=== PATIENT | male | born 1975 | race African-American/Black ===

== ENCOUNTER 2019-11-11 19:11 | Emergency (ER) | payer MEDICAID ==
[~2019-11-11] VITALS: Ht 177.8 cm; Wt 107.0 kg
[2019-11-11] MEDS ORDERED: ASPIRIN 81MG TABLET PO ONE (19:30)
[2019-11-11] MEDS ORDERED: IPRATROPIUM BROMIDE (0.02%) 0.5MG/2.5ML NEB HHN STA (19:41)
[2019-11-11] MEDS ORDERED: ALBUTEROL (0.083%) 2.5MG/3ML NEB HHN STA (19:41)
[2019-11-11 19:45] LABS: BASOPHILS % 0.6 % (0.0-2.0); EOSINOPHILS % 0.6 % (0.0-5.0); HEMATOCRIT. 33.2 % (42.0-52.0); LYMPHOCYTES % 8.9 % (20.0-50.0); MEAN CORPUSCULAR HEMOGLOBIN 28.6 pg (28.0-32.0); MEAN CORPUSCULAR VOLUME 86.6 fL (80.0-94.0); MEAN PLATELET VOLUME 8.7 fl (7.4-10.4); MONOCYTES % 11.1 % (2.0-8.0); NEUTROPHILS % 78.8 % (40.0-76.0); PLATELET 307 x1000/uL (130-400); RED BLOOD CELL COUNT 3.83 mill/uL (4.7-6.1); RED CELL DISTRIBUTION WIDTH 14.9 % (11.6-14.6)
[2019-11-11] MEDS ORDERED: HYDROCODONE/ACETAMINOPHEN 5/325MG TABLET PO ONE (19:45)
[2019-11-11 19:49] LABS: CHLORIDE 99 mEq/L (98-107)
[2019-11-11] MEDS ORDERED: SODIUM CHLORIDE 0.9% 1,000 ML IV ONE (21:15)
[2019-11-11] MEDS ORDERED: ALBUTEROL (0.5%) 2.5MG/0.5ML NEB HHN ONE (21:15)
[2019-11-11] MEDS ORDERED: KETOROLAC 15MG/ML VIAL IV ONE (21:45)
[2019-11-12 00:25] VITALS: BP 116/83
== END 2019-11-12 00:25 | disposition home or self-care (01) ==
LOC: ER 19:11
DX: R07.89 Other chest pain (principal); R05 Cough; D72.829 Elevated white blood cell count, unspecified; E11.9 Type 2 diabetes mellitus without complications; I10 Essential (primary) hypertension; J40 Bronchitis, not specified as acute or chronic; G62.9 Polyneuropathy, unspecified
CPT/HCPCS: 36415; 71045; 80053; 83880; 84484; 85025; 93005; 94640; 96361; 96374; 99285; J1885; J7030; Z7610

== ENCOUNTER 2019-12-10 19:36 | Emergency (ER) | payer MEDICAID, OTHER ==
[~2019-12-10] VITALS: Ht 177.8 cm; Wt 106.3 kg
[2019-12-11 00:13] LABS: BASOPHILS % 0.7 % (0.0-2.0); EOSINOPHILS % 4.1 % (0.0-5.0); HEMATOCRIT. 32.8 % (42.0-52.0); LYMPHOCYTES % 19.9 % (20.0-50.0); MEAN CORPUSCULAR HEMOGLOBIN 29.4 pg (28.0-32.0); MEAN CORPUSCULAR VOLUME 87.9 fL (80.0-94.0); MEAN PLATELET VOLUME 7.8 fl (7.4-10.4); MONOCYTES % 10.1 % (2.0-8.0); NEUTROPHILS % 65.2 % (40.0-76.0); PLATELET 369 x1000/uL (130-400); RED BLOOD CELL COUNT 3.73 mill/uL (4.7-6.1); RED CELL DISTRIBUTION WIDTH 15.3 % (11.6-14.6)
[2019-12-11 00:19] LABS: CHLORIDE 101 mEq/L (98-107)
[2019-12-11] MEDS ORDERED: PIPERACILLIN/TAZOBACTAM 3.375GM/50ML PREMIX IV ONE (01:00)
[2019-12-11] MEDS ORDERED: VANCOMYCIN 1 G PREMIX 200 ML IV NR (01:00)
[2019-12-11] MEDS ORDERED: PIPERACILLIN/TAZ 3.375G PREMIX 50 ML IV NR ×2 (01:15→02:00)
[2019-12-11 01:35] LABS: PROTHROMBIN TIME 10.2 sec (9.6-11.0)
[2019-12-11 05:58] VITALS: BP 148/87
== END 2019-12-11 06:08 | disposition short-term general hospital (02) ==
LOC: ER 19:36 → CANBEDREQ 12-11 06:31
DX: L89.893 Pressure ulcer of other site, stage 3 (principal); E11.621 Type 2 diabetes mellitus with foot ulcer; E11.65 Type 2 diabetes mellitus with hyperglycemia; M86.8X7 Other osteomyelitis, ankle and foot; L03.115 Cellulitis of right lower limb; E11.22 Type 2 diabetes mellitus with diabetic chronic kidney disease; I12.9 Hypertensive chronic kidney disease with stage 1 through stage 4 chronic kidney disease, or unspecified chronic kidney disease; N18.2 Chronic kidney disease, stage 2 (mild)
CPT/HCPCS: 36415; 71045; 73630; 80053; 83605; 84145; 84484; 85025; 85610; 87040; 93005; 96365; 96366; 96368; 99285; J2543; J3370

== ENCOUNTER 2020-01-28 17:23 | Emergency (ER) | payer OTHER ==
[~2020-01-28] VITALS: Ht 177.8 cm; Wt 109.0 kg
[2020-01-28] MEDS ORDERED: ONDANSETRON HCL 4MG/2ML INJ IM ONE (19:00)
[2020-01-28 19:07] LABS: HEMATOCRIT. 31.2 % (42.0-52.0); HEMOGLOBIN. 9.9 g/dL (14.0-18.0); MEAN CORPUSCULAR HEMOGLOBIN 27.6 pg (28.0-32.0); MEAN CORPUSCULAR VOLUME 86.6 fL (80.0-94.0); MEAN PLATELET VOLUME 10.1 fl (7.4-10.4); PLATELET 396 x1000/uL (130-400); RED CELL DISTRIBUTION WIDTH 15.6 % (11.6-14.6)
[2020-01-28 19:13] LABS: CHLORIDE 88 mEq/L (98-107)
[2020-01-28 19:16] LABS: CLARITY URINE CLEAR (CLEAR); COLOR URINE YELLOW (YELLOW); KETONES URINE TRACE (NEGATIVE); LEUKOCYTE ESTERASE URINE NEGATIVE (NEGATIVE); NITRITE URINE NEGATIVE (NEGATIVE); OCCULT BLOOD URINE 1+ (NEGATIVE); PROTEIN URINE 1+ (NEGATIVE); SPECIFIC GRAVITY URINE 1.031 (1.005-1.030)
[2020-01-28] MEDS ORDERED: SODIUM CHLORIDE 0.9% 1,000 ML IV ONE ×2 (19:30)
[2020-01-28] MEDS ORDERED: CEFTRIAXONE 1 G PREMIX 50 ML IV ONE (19:30)
[2020-01-28 19:42] LABS: PLATELET ESTIMATE NORMAL
[2020-01-28] MEDS ORDERED: INSULIN REGULAR (HUMULIN R) 300UNITS/3ML VIAL IV ONE (21:15)
[2020-01-29 03:24] VITALS: BP 121/63
== END 2020-01-29 03:22 | disposition short-term general hospital (02) ==
LOC: ER 17:23 → CANBEDREQ 01-29 07:14
DX: R60.0 Localized edema (principal); E11.65 Type 2 diabetes mellitus with hyperglycemia; I12.9 Hypertensive chronic kidney disease with stage 1 through stage 4 chronic kidney disease, or unspecified chronic kidney disease; N18.9 Chronic kidney disease, unspecified; D72.829 Elevated white blood cell count, unspecified; R79.89 Other specified abnormal findings of blood chemistry
CPT/HCPCS: 36415; 71045; 80053; 81003; 82962; 83880; 85025; 85610; 93005; 93971; 96372; 96374; 96375; 99285; J0696; J1815; J2405; J7030

== ENCOUNTER 2020-02-22 17:14 | Emergency (ER) | payer OTHER ==
[~2020-02-22] VITALS: Ht 177.8 cm; Wt 105.0 kg
[2020-02-22 20:25] VITALS: BP 167/74
== END 2020-02-22 20:29 | disposition home or self-care (01) ==
LOC: ER 17:14
DX: M79.671 Pain in right foot (principal); E11.9 Type 2 diabetes mellitus without complications; I10 Essential (primary) hypertension
CPT/HCPCS: 93005; 99283

== ENCOUNTER 2021-05-18 18:01 | Inpatient (IN) | payer OTHER ==
[~2021-05-18] VITALS: Ht 177.8 cm; Wt 106.1 kg
[2021-05-18 19:05] LABS: CHLORIDE 100 mEq/L (98-107)
[2021-05-18 19:12] LABS: BASOPHILS % 0.5 % (0.0-2.0); EOSINOPHILS % 0.7 % (0.0-5.0); HEMATOCRIT. 29.8 % (42.0-52.0); HEMOGLOBIN. 9.4 g/dL (14.0-18.0); MEAN CORPUSCULAR HEMOGLOBIN 26.2 pg (28.0-32.0); MEAN CORPUSCULAR VOLUME 82.9 fL (80.0-94.0); NEUTROPHILS % 78.8 % (40.0-76.0); PLATELET 339 x1000/uL (130-400); RED CELL DISTRIBUTION WIDTH 15.6 % (11.6-14.6)
[2021-05-18] MEDS ORDERED: ONDANSETRON HCL 4MG/2ML INJ IV STA (20:27)
[2021-05-18] MEDS ORDERED: MORPHINE SULFATE 4 MG/ML CPJ (NOT FOR IM USE) IV STA (20:27)
[2021-05-18] MEDS ORDERED: NITROGLYCERIN OINT 1GM/INCH UDPKT TD ONE (20:30)
[2021-05-18] MEDS ORDERED: PIPERACILLIN/TAZ 3.375G PREMIX 50 ML IV ONE (21:00)
[2021-05-18] MEDS ORDERED: VANCOMYCIN 1G PREMIX 200 ML IV ONE (21:00)
[2021-05-18] MEDS ORDERED: ASPIRIN 81MG TABLET PO ONE (21:45)
[2021-05-19] MEDS ORDERED: VANCOMYCIN 1G PREMIX 200 ML IV SCH (06:00)
[2021-05-19] MEDS ORDERED: HYDROCODONE/ACETAMINOPHEN 5/325MG TABLET PO PRN (11:00)
[2021-05-19] MEDS ORDERED: ACETAMINOPHEN 325MG TABLET PO PRN (11:00)
[2021-05-19] MEDS ORDERED: ONDANSETRON HCL 4MG/2ML INJ IV PRN (11:00)
[2021-05-19] MEDS ORDERED: DEXTROSE 50% WATER 50ML SYRINGE IV PRN (11:15)
[2021-05-19 12:00] VITALS: BP 126/73
[2021-05-19] MEDS: BLOOD SUGAR DIAGNOSTIC STRIP TEST SCH ×3 (12:16→21:00)
[2021-05-19] MEDS: INSULIN LISPRO 100 UNITS/ML SUBCUT SCH ×4 (12:40→22:21)
[2021-05-19] MEDS: LEVOFLOXACIN 500MG PREMIX 100 ML IV SCH (13:43)
[2021-05-19 16:00] VITALS: BP 156/87
[2021-05-19 20:00] VITALS: BP 120/70
[2021-05-19 20:52] VITALS: BP 126/73
[2021-05-20] VITALS: BP 121/72
[2021-05-20 04:00] VITALS: BP 129/77
[2021-05-20] MEDS: BLOOD SUGAR DIAGNOSTIC STRIP TEST SCH ×4 (06:45→20:22)
[2021-05-20] MEDS: INSULIN LISPRO 100 UNITS/ML SUBCUT SCH ×4 (07:00→20:21)
[2021-05-20 07:12] LABS: HEMATOCRIT. 26.3 % (42.0-52.0); HEMOGLOBIN. 8.8 g/dL (14.0-18.0); MEAN CORPUSCULAR HEMOGLOBIN 27.2 pg (28.0-32.0); MEAN CORPUSCULAR VOLUME 81.2 fL (80.0-94.0); MEAN PLATELET VOLUME 8.4 fl (7.4-10.4); PLATELET 397 x1000/uL (130-400); RED BLOOD CELL COUNT 3.24 mill/uL (4.7-6.1); RED CELL DISTRIBUTION WIDTH 15.8 % (11.6-14.6)
[2021-05-20 08:00] VITALS: BP 130/74
[2021-05-20] MEDS: VANCOMYCIN 1G PREMIX 200 ML IV SCH (09:05)
[2021-05-20] MEDS ORDERED: POTASSIUM CHLORIDE 20MEQ TABLET SR PO NR (10:45)
[2021-05-20 12:00] VITALS: BP 142/88
[2021-05-20 12:54] LABS: PLATELET ESTIMATE NORMAL
[2021-05-20] MEDS: LEVOFLOXACIN 500MG PREMIX 100 ML IV SCH (13:36)
[2021-05-20 16:00] VITALS: BP 121/67
[2021-05-20 18:24] LABS: *BARBITURATES SCREEN URINE NEGATIVE (NEGATIVE); *BENZODIAZEPINES SCREEN URINE NEGATIVE (NEGATIVE); *COCAINE SCREEN URINE NEGATIVE (NEGATIVE); CANNABINOID URINE SCREEN NEGATIVE (NEGATIVE); METHADONE URINE SCREEN NEGATIVE (NEGATIVE); OPIATES URINE SCREEN PRESUMTIVE POSITIVE (NEGATIVE); PHENCYCLIDINE URINE SCREEN NEGATIVE (NEGATIVE)
[2021-05-20 18:25] LABS: *AMPHETAMINES SCREEN URINE NEGATIVE (NEGATIVE)
[2021-05-20 20:00] VITALS: BP 141/89
[2021-05-21] VITALS: BP 113/77
[2021-05-21 04:00] VITALS: BP 124/79
[2021-05-21] MEDS: VANCOMYCIN 1G PREMIX 200 ML IV SCH ×2 (06:03→22:26)
[2021-05-21] MEDS: INSULIN LISPRO 100 UNITS/ML SUBCUT SCH ×4 (06:10→21:00)
[2021-05-21] MEDS: BLOOD SUGAR DIAGNOSTIC STRIP TEST SCH ×4 (06:10→21:00)
[2021-05-21 08:00] VITALS: BP 132/94
[2021-05-21] MEDS: LEVOFLOXACIN 500MG PREMIX 100 ML IV SCH (10:19)
[2021-05-21 12:03] VITALS: BP 138/78
[2021-05-21 16:00] VITALS: BP 137/81
[2021-05-21 20:00] VITALS: BP 135/74
[2021-05-22] VITALS: BP 129/70
[2021-05-22 04:00] VITALS: BP 136/81
[2021-05-22] MEDS: BLOOD SUGAR DIAGNOSTIC STRIP TEST SCH ×4 (06:30→21:00)
[2021-05-22] MEDS: INSULIN LISPRO 100 UNITS/ML SUBCUT SCH ×4 (07:57→21:00)
[2021-05-22 08:00] VITALS: BP 139/83
[2021-05-22] MEDS ORDERED: LIDOCAINE HCL/PF 1% 10 MG/ML 5ML VIAL ONE (09:13)
[2021-05-22] MEDS: LEVOFLOXACIN 500MG PREMIX 100 ML IV SCH (10:46)
[2021-05-22 12:00] VITALS: BP 135/86
[2021-05-22] MEDS: VANCOMYCIN 1G PREMIX 200 ML IV SCH (14:47)
[2021-05-22 16:00] VITALS: BP 155/90
[2021-05-22 20:00] VITALS: BP 137/82
[2021-05-23] VITALS: BP 125/66
[2021-05-23 04:00] VITALS: BP 135/77
[2021-05-23] MEDS: BLOOD SUGAR DIAGNOSTIC STRIP TEST SCH ×3 (06:08→18:02)
[2021-05-23] MEDS: INSULIN LISPRO 100 UNITS/ML SUBCUT SCH ×3 (06:09→17:40)
[2021-05-23] MEDS: VANCOMYCIN 1G PREMIX 200 ML IV SCH (10:50)
[2021-05-23] MEDS: LEVOFLOXACIN 500MG PREMIX 100 ML IV SCH (13:35)
[2021-05-23 20:00] VITALS: BP_SYST 145
[2021-05-23 20:11] VITALS: BP 145/86
== END 2021-05-23 21:30 | disposition short-term general hospital (02) | DRG 720 ==
LOC: ER 18:01 → MICUSO 05-19 02:15 → EDBEDREQ 05-19 02:18 → EDBEDREQTM 05-19 02:18 → EDBEDREQDT 05-19 02:18 → 8WST 05-19 12:20
PROVIDERS: ADMIT Internal Medicine; ATTEND Internal Medicine
PROC: 02HV33Z Insertion of Infusion Device into Superior Vena Cava, Percutaneous Approach (ICD-10-PCS; principal; 2021-05-22)
PROC: B518ZZA Fluoroscopy of Superior Vena Cava, Guidance (ICD-10-PCS; 2021-05-22)
PROC: B548ZZA Ultrasonography of Superior Vena Cava, Guidance (ICD-10-PCS; 2021-05-22)
DX: A41.9 Sepsis, unspecified organism (principal); N17.0 Acute kidney failure with tubular necrosis; E43 Unspecified severe protein-calorie malnutrition; L97.519 Non-pressure chronic ulcer of other part of right foot with unspecified severity; E11.42 Type 2 diabetes mellitus with diabetic polyneuropathy; L03.115 Cellulitis of right lower limb; D64.9 Anemia, unspecified; E11.621 Type 2 diabetes mellitus with foot ulcer; L97.529 Non-pressure chronic ulcer of other part of left foot with unspecified severity; E11.69 Type 2 diabetes mellitus with other specified complication; M86.8X7 Other osteomyelitis, ankle and foot; Z20.822 Contact with and (suspected) exposure to COVID-19; E66.9 Obesity, unspecified; I11.9 Hypertensive heart disease without heart failure; R07.89 Other chest pain; F17.200 Nicotine dependence, unspecified, uncomplicated; Z71.3 Dietary counseling and surveillance; Z68.33 Body mass index [BMI] 33.0-33.9, adult; Z89.411 Acquired absence of right great toe
CPT/HCPCS: 36415; 71045; 73630; 73718; 76937; 80048; 80053; 80202; 80305; 82962; 83036; 83880; 84145; 84484; 85025; 85651; 86140; 87070; 87075; 87077; 87186; 87426; 93005; 93306; 93923; 99291; C1725; J1815; J1956; J2270; J2405; J2543; J3370; J3490

== ENCOUNTER 2021-06-16 20:04 | Emergency (ER) | payer OTHER ==
[~2021-06-16] VITALS: Ht 177.8 cm; Wt 107.0 kg
[2021-06-17] MEDS ORDERED: VANCOMYCIN 1G PREMIX 200 ML IV SCH (02:45)
[2021-06-17] MEDS ORDERED: LEVOFLOXACIN 750MG PREMIX 150 ML IV ONE (02:45)
[2021-06-17] MEDS ORDERED: VANCOMYCIN 1GM PMX (XELLIA) 200 ML IV SCH (05:15)
[2021-06-17 09:15] VITALS: BP 145/85
== END 2021-06-17 09:25 | disposition home or self-care (01) ==
LOC: ER 20:04
DX: T82.514A Breakdown (mechanical) of infusion catheter, initial encounter (principal); X58.XXXA Exposure to other specified factors, initial encounter; M86.8X3 Other osteomyelitis, forearm; E11.9 Type 2 diabetes mellitus without complications; I10 Essential (primary) hypertension; Z98.890 Other specified postprocedural states
CPT/HCPCS: 82962; 96365; 96366; 96368; 99285; J1956; J3370